=== PATIENT | female | born 1955 | race Caucasian/White ===

== ENCOUNTER 2024-06-22 12:18 | Observation (INO) ==
[2024-06-22] MEDS: methylPREDNISolone SOD SUCC 125 MG/2 ML VIAL IV ONE (12:54)
[2024-06-22] MEDS: IPRATROPIUM/ALBUTEROL 3 ML AMPUL.NEB NEB ONE (12:56)
[2024-06-22 13:20] LABS: Basophils # (Auto) 0.01 K/mcL (0.00-0.30); Basophils % (Auto) 0.1 % (0.0-2.0); Eosinophils # (Auto) 0 K/mcL (0.00-0.70); Eosinophils % (Auto) 0 % (0.0-7.0); Hematocrit 39.6 % (34.1-44.9); Lymphocytes # (Auto) 1.16 K/mcL (1.50-4.80); Lymphocytes % (Auto) 8.7 % (15.5-49.0); Mean Corpuscular HGB Conc 32.8 g/dL (31.0-36.0); Mean Platelet Volume 10.9 fL (8.8-12.5); Monocytes # (Auto) 0.42 K/mcL (0.10-0.90); Monocytes % (Auto) 3.1 % (1.0-12.0); Neutrophils % (Auto) 87.1 % (38.0-78.0); Platelet Count 476 K/mcL (140-440); Red Cell Distribution Width 14.9 % (11.5-14.5); WBC 13.4 K/mcL (4.5-11.0)
[2024-06-22 13:34] LABS: ALT/SGPT 23 U/L (<40); AST/SGOT 25 U/L (<32); Albumin 4.6 gm/dL (3.2-5.2); Albumin/Globulin Ratio 1.2 (1.0-2.3); Alkaline Phosphatase 82 U/L (39-117); Bilirubin,Total 0.5 mg/dL (0.1-1.0); Blood Urea Nitrogen 24 mg/dL (8-23); Calcium 10.1 mg/dL (8.6-10.4); Carbon Dioxide 23 mmol/L (22-30); Chloride 96 mmol/L (96-108); Globulin 3.7 gm/dL (2.2-3.7); Glomerular Filtration Rate 66; Glucose 133 mg/dL (70-105); Potassium 3.9 mmol/L (3.3-5.1); Sodium 137 mmol/L (133-145)
[2024-06-22 13:38] LABS: ABG Methemoglobin 0.1 % (0.4-1.5); Total Hemoglobin 13.7 gm/Dl (12.0-15.0); VBG Base Excess 3 (-2-3); VBG HCO3 24.1 mmol/L (24.0-28.0); VBG Oxygen Saturation 87.4 % (40.0-70.0); VBG PCO2 27.5 mmHg (41.0-51.0); VBG PH 7.56 U (7.32-7.42); VBG Total CO2 24.9 mmol/L (25.0-29.0)
[2024-06-22] MEDS: ALBUTEROL SULFATE 2.5 MG/3 ML NEBULIZER NEB ONE ×2 (13:52→16:00)
[2024-06-22] MEDS: DOXYCYCLINE HYCLATE 100 MG TABLET.ORL PO ONE (14:39)
[2024-06-22] MEDS: FUROSEMIDE 20 MG/2 ML VIAL IV ONE (14:39)
[2024-06-22] MEDS: cefTRIAXone 1 GM VIAL IV ONE (14:39)
[2024-06-22] MEDS ORDERED: ONDANSETRON 4 MG/2 ML VIAL IV PRN (17:25)
[2024-06-22 18:23] LABS: INR 2.2 (0.9-1.1); Prothrombin Time 25.4 sec (11.9-14.5)
[2024-06-22] MEDS: IPRATROPIUM/ALBUTEROL 3 ML AMPUL.NEB NEB SCH (18:47)
[2024-06-22] MEDS: AMOXICILLIN/POTASSIUM CLAV 500 MG TABLET PO SCH (20:13)
[2024-06-22] MEDS ORDERED: ALBUTEROL INHALER INH PRN (20:57)
[2024-06-22] MEDS: BENZONATATE 100 MG CAPSULE PO PRN (21:04)
[2024-06-22] MEDS: WARFARIN 5 MG TABLET PO ONE (21:24)
[2024-06-22] MEDS: DILTIAZEM 120 MG CAP.XL.24H PO SCH (21:24)
[2024-06-22] MEDS: SENNOSIDES 1 TABLET PO SCH (21:24)
[2024-06-22] MEDS: DOCUSATE SODIUM 100 MG CAPSULE PO SCH (21:24)
[2024-06-22] MEDS: ACETAMINOPHEN 325 MG TABLET PO PRN (21:24)
[2024-06-22] MEDS: GABAPENTIN 300 MG CAPSULE PO SCH (21:24)
[2024-06-22] MEDS: traMADol 50 MG TABLET PO PRN (21:25)
[2024-06-22] MEDS: ATORVASTATIN 40 MG TABLET PO SCH (21:25)
[2024-06-22] MEDS: MONTELUKAST 10 MG TABLET PO SCH (21:25)
[2024-06-22] MEDS: 0.9 % SODIUM CHLORIDE 10 ML SYRINGE IV SCH (21:26)
[2024-06-23] MEDS: guaiFENesin/DEXTROMETHORPHAN 5ML UD CUP PO PRN (05:33)
[2024-06-23] MEDS: IPRATROPIUM/ALBUTEROL 3 ML AMPUL.NEB NEB PRN (05:57)
[2024-06-23 06:51] LABS: INR 2.3 (0.9-1.1); Prothrombin Time 25.8 sec (11.9-14.5)
[2024-06-23 06:52] LABS: Basophils # (Auto) 0.02 K/mcL (0.00-0.30); Basophils % (Auto) 0.1 % (0.0-2.0); Eosinophils # (Auto) 0 K/mcL (0.00-0.70); Eosinophils % (Auto) 0 % (0.0-7.0); Hematocrit 38.4 % (34.1-44.9); Hemoglobin 12.6 g/dL (11.2-15.7); Lymphocytes % (Auto) 8.3 % (15.5-49.0); Mean Cell Volume 88.3 fL (80.0-100.0); Mean Corpuscular HGB Conc 32.8 g/dL (31.0-36.0); Mean Platelet Volume 10.9 fL (8.8-12.5); Monocytes # (Auto) 0.75 K/mcL (0.10-0.90); Monocytes % (Auto) 4.1 % (1.0-12.0); Neutrophils % (Auto) 86.3 % (38.0-78.0); Platelet Count 514 K/mcL (140-440); RBC 4.35 M/mcL (3.59-5.38); Red Cell Distribution Width 15.1 % (11.5-14.5); WBC 18.2 K/mcL (4.5-11.0)
[2024-06-23 06:58] LABS: Phosphorous 4.8 mg/dL (2.5-4.5)
[2024-06-23 07:02] LABS: ALT/SGPT 35 U/L (<40); AST/SGOT 28 U/L (<32); Albumin 4.3 gm/dL (3.2-5.2); Albumin/Globulin Ratio 1.2 (1.0-2.3); Alkaline Phosphatase 76 U/L (39-117); Bilirubin,Total 0.3 mg/dL (0.1-1.0); Blood Urea Nitrogen 30 mg/dL (8-23); Calcium 9.7 mg/dL (8.6-10.4); Carbon Dioxide 23 mmol/L (22-30); Chloride 96 mmol/L (96-108); Globulin 3.5 gm/dL (2.2-3.7); Glomerular Filtration Rate 58; Glucose 157 mg/dL (70-105); Potassium 3.7 mmol/L (3.3-5.1); Sodium 136 mmol/L (133-145)
[2024-06-23] MEDS ORDERED: FUROSEMIDE 20 MG/2 ML VIAL IV ONE (07:16)
[2024-06-23] MEDS: FUROSEMIDE 20 MG/2 ML VIAL IV SCH (07:16)
[2024-06-23] MEDS: OMEPRAZOLE 20 MG CAPSULE PO SCH (09:25)
[2024-06-23] MEDS: predniSONE 20 MG TABLET PO SCH (09:25)
[2024-06-23] MEDS: SPIRONOLACTONE 25 MG TABLET PO SCH (09:25)
[2024-06-23] MEDS: DOFETILIDE 125 MCG PO SCH ×2 (09:26→17:37)
[2024-06-23] MEDS: LORazepam 0.5 MG TABLET PO PRN (11:17)
[2024-06-23] MEDS ORDERED: FUROSEMIDE 20 MG TABLET PO SCH (13:15)
[2024-06-23] MEDS: NITROGLYCERIN 0.4 MG TAB.SUBL SL PRN (14:02)
[2024-06-23] MEDS: WARFARIN 5 MG TABLET PO SCH (14:46)
[2024-06-23] MEDS: FUROSEMIDE 20 MG TABLET PO SCH (17:36)
[2024-06-23] MEDS ORDERED: METOPROLOL TARTRATE 5 MG/5 ML VIAL IV PRN (20:03)
[2024-06-23] MEDS: traZODone HCL 50 MG TABLET PO PRN (20:15)
[2024-06-24] MEDS: FUROSEMIDE 20 MG TABLET PO SCH (05:32)
[2024-06-24 06:32] LABS: Basophils # (Auto) 0.01 K/mcL (0.00-0.30); Basophils % (Auto) 0.1 % (0.0-2.0); Eosinophils # (Auto) 0 K/mcL (0.00-0.70); Eosinophils % (Auto) 0 % (0.0-7.0); Hematocrit 37.7 % (34.1-44.9); Hemoglobin 12.5 g/dL (11.2-15.7); Lymphocytes # (Auto) 1.51 K/mcL (1.50-4.80); Lymphocytes % (Auto) 10.3 % (15.5-49.0); Mean Cell Volume 88.9 fL (80.0-100.0); Mean Corpuscular HGB Conc 33.2 g/dL (31.0-36.0); Mean Platelet Volume 10.8 fL (8.8-12.5); Monocytes # (Auto) 1.19 K/mcL (0.10-0.90); Monocytes % (Auto) 8.1 % (1.0-12.0); Neutrophils % (Auto) 80.5 % (38.0-78.0); Platelet Count 483 K/mcL (140-440); RBC 4.24 M/mcL (3.59-5.38); WBC 14.7 K/mcL (4.5-11.0)
[2024-06-24 06:48] LABS: INR 3.3 (0.9-1.1); Prothrombin Time 34.4 sec (11.9-14.5)
[2024-06-24 06:55] LABS: ALT/SGPT 41 U/L (<40); AST/SGOT 27 U/L (<32); Albumin 4.1 gm/dL (3.2-5.2); Albumin/Globulin Ratio 1.3 (1.0-2.3); Alkaline Phosphatase 71 U/L (39-117); Bilirubin,Total 0.4 mg/dL (0.1-1.0); Blood Urea Nitrogen 33 mg/dL (8-23); Calcium 9.3 mg/dL (8.6-10.4); Carbon Dioxide 25 mmol/L (22-30); Chloride 98 mmol/L (96-108); Globulin 3.2 gm/dL (2.2-3.7); Glomerular Filtration Rate 58; Glucose 134 mg/dL (70-105); Potassium 3.5 mmol/L (3.3-5.1); Sodium 136 mmol/L (133-145)
[2024-06-24 06:56] LABS: Phosphorous 5.2 mg/dL (2.5-4.5)
[2024-06-24] MEDS: IPRATROPIUM/ALBUTEROL 3 ML AMPUL.NEB NEB PRN (08:53)
== END 2024-06-24 12:54 | disposition home or self-care (01) ==
LOC: ED 12:18 → ICU 12:18 → MEDSUR 22:57
PROVIDERS: ADMIT Internal Medicine; ATTEND Internal Medicine

== ENCOUNTER 2025-09-06 12:13 | Inpatient (IN) ==
[2025-09-06] MEDS: FUROSEMIDE 40 MG/4 ML VIAL IV ONE (12:45)
[2025-09-06 13:13] LABS: Basophils # (Auto) 0.01 K/mcL (0.00-0.30); Basophils % (Auto) 0.1 % (0.0-2.0); Eosinophils # (Auto) 0 K/mcL (0.00-0.70); Eosinophils % (Auto) 0 % (0.0-7.0); Hematocrit 39.5 % (34.1-44.9); Hemoglobin 12.6 g/dL (11.2-15.7); Lymphocytes # (Auto) 1.02 K/mcL (1.50-4.80); Lymphocytes % (Auto) 9.2 % (15.5-49.0); Mean Corpuscular HGB Conc 31.9 g/dL (31.0-36.0); Monocytes # (Auto) 0.35 K/mcL (0.10-0.90); Monocytes % (Auto) 3.2 % (1.0-12.0); Neutrophils % (Auto) 87.1 % (38.0-78.0); Platelet Count 244 K/mcL (140-440); RBC 4.36 M/mcL (3.59-5.38); WBC 11.1 K/mcL (4.5-11.0)
[2025-09-06] MEDS: IPRATROPIUM/ALBUTEROL 3 ML AMPUL.NEB NEB ONE (13:24)
[2025-09-06 13:51] LABS: ALT/SGPT 21 U/L (<40); AST/SGOT 33 U/L (<32); Albumin 4.5 gm/dL (3.2-5.2); Albumin/Globulin Ratio 1.5 (1.0-2.3); Alkaline Phosphatase 108 U/L (39-117); Anion Gap 16.0 (8.0-16.0); Bilirubin,Total 0.6 mg/dL (0.1-1.0); Blood Urea Nitrogen 24 mg/dL (8-23); Calcium 9.5 mg/dL (8.6-10.4); Carbon Dioxide 23 mmol/L (22-30); Chloride 101 mmol/L (96-108); Globulin 3.1 gm/dL (2.2-3.7); Glucose 117 mg/dL (70-105); Potassium 4.2 mmol/L (3.3-5.1); Sodium 140 mmol/L (133-145)
[2025-09-06 16:37] LABS: Bacteria,Urine 0 /hpf (0); Bilirubin,Urine NEGATIVE (Negative); Color,Urine LT. YELLOW; Glucose,Urine (UA) NEGATIVE (Negative); Ketones,Urine NEGATIVE (Negative); Leukocyte Esterase,Urine NEGATIVE /uL (Negative); PH,Urine 6.5 (5.0-9.0); Protein,Urine NEGATIVE (Negative); Specific Gravity,Urine 1.010 (1.000-1.035); Urobilinogen,Urine 0.2 mg/dL
[2025-09-06] MEDS ORDERED: METOPROLOL TARTRATE 5 MG/5 ML VIAL IV PRN (17:32)
[2025-09-06] MEDS ORDERED: MAGNESIUM SULFATE 2 GM/50 ML BAG IV PRN (17:32)
[2025-09-06] MEDS ORDERED: ACETAMINOPHEN 325 MG TABLET PO PRN (17:32)
[2025-09-06] MEDS ORDERED: ONDANSETRON 4 MG/2 ML VIAL IV PRN (17:32)
[2025-09-06] MEDS ORDERED: SENNOSIDES 1 TABLET PO PRN (17:32)
[2025-09-06] MEDS ORDERED: METOCLOPRAMIDE 10 MG/2 ML VIAL IV PRN (17:32)
[2025-09-06] MEDS ORDERED: POTASSIUM CHLORIDE 40 MEQ in DEXTROSE 5% IN WATER 500 ML IV PRN (17:32)
[2025-09-06] MEDS ORDERED: POTASSIUM CHLORIDE 20 MEQ TABLET PO PRN (17:32)
[2025-09-06] MEDS: IPRATROPIUM/ALBUTEROL 3 ML AMPUL.NEB NEB PRN (18:08)
[2025-09-06] MEDS: ACETAMINOPHEN 500 MG TABLET PO PRN (19:42)
[2025-09-06] MEDS: FUROSEMIDE 40 MG/4 ML VIAL IV SCH (19:42)
[2025-09-06] MEDS: DILTIAZEM 120 MG CAP.XL.24H PO SCH (20:58)
[2025-09-06] MEDS: ATORVASTATIN 40 MG TABLET PO SCH (20:58)
[2025-09-06] MEDS: GABAPENTIN 300 MG CAPSULE PO SCH (20:58)
[2025-09-06] MEDS: DOCUSATE SODIUM 100 MG CAPSULE PO SCH (20:59)
[2025-09-06] MEDS: ENOXAPARIN 40 MG/0.4 ML SYRINGE SQ SCH (20:59)
[2025-09-06] MEDS: Budesonide-Glycopyr-Formoterol [Breztri Aerosphere] 160MCG-9MCG-4.8MCG/ACT Inhaler INH SCH (20:59)
[2025-09-07 06:32] LABS: Basophils # (Auto) 0.02 K/mcL (0.00-0.30); Basophils % (Auto) 0.2 % (0.0-2.0); Eosinophils # (Auto) 0.01 K/mcL (0.00-0.70); Eosinophils % (Auto) 0.1 % (0.0-7.0); Hematocrit 36.1 % (34.1-44.9); Hemoglobin 11.5 g/dL (11.2-15.7); Lymphocytes # (Auto) 2.55 K/mcL (1.50-4.80); Lymphocytes % (Auto) 26.8 % (15.5-49.0); Mean Corpuscular HGB Conc 31.9 g/dL (31.0-36.0); Monocytes # (Auto) 0.83 K/mcL (0.10-0.90); Monocytes % (Auto) 8.7 % (1.0-12.0); Neutrophils % (Auto) 64.0 % (38.0-78.0); Platelet Count 226 K/mcL (140-440); RBC 3.94 M/mcL (3.59-5.38); WBC 9.5 K/mcL (4.5-11.0)
[2025-09-07 06:49] LABS: ALT/SGPT 22 U/L (<40); AST/SGOT 23 U/L (<32); Albumin 4.0 gm/dL (3.2-5.2); Albumin/Globulin Ratio 1.5 (1.0-2.3); Alkaline Phosphatase 94 U/L (39-117); Anion Gap 11.0 (8.0-16.0); Bilirubin,Direct 0.3 mg/dL (<0.3); Bilirubin,Total 0.6 mg/dL (0.1-1.0); Blood Urea Nitrogen 23 mg/dL (8-23); Calcium 9.0 mg/dL (8.6-10.4); Carbon Dioxide 29 mmol/L (22-30); Chloride 100 mmol/L (96-108); Globulin 2.6 gm/dL (2.2-3.7); Glucose 112 mg/dL (70-105); Phosphorous 4.2 mg/dL (2.5-4.5); Potassium 3.4 mmol/L (3.3-5.1); Sodium 140 mmol/L (133-145); Triglycerides 54 mg/dL (<150); Uric Acid 8.1 mg/dL (2.5-8.0)
[2025-09-07] MEDS: OMEPRAZOLE 20 MG CAPSULE PO SCH (07:13)
[2025-09-07] MEDS: SPIRONOLACTONE 25 MG TABLET PO SCH (08:23)
[2025-09-07] MEDS: MONTELUKAST 10 MG TABLET PO SCH (08:24)
[2025-09-07] MEDS: POTASSIUM CHLORIDE 20 MEQ TABLET PO ONE (12:54)
[2025-09-07] MEDS: APIXABAN 5 MG TABLET PO SCH (21:01)
[2025-09-08 06:34] LABS: ALT/SGPT 24 U/L (<40); AST/SGOT 22 U/L (<32); Albumin 4.0 gm/dL (3.2-5.2); Albumin/Globulin Ratio 1.5 (1.0-2.3); Alkaline Phosphatase 100 U/L (39-117); Anion Gap 13.0 (8.0-16.0); Bilirubin,Direct 0.3 mg/dL (<0.3); Bilirubin,Total 0.6 mg/dL (0.1-1.0); Blood Urea Nitrogen 29 mg/dL (8-23); Calcium 8.9 mg/dL (8.6-10.4); Carbon Dioxide 26 mmol/L (22-30); Chloride 99 mmol/L (96-108); Globulin 2.7 gm/dL (2.2-3.7); Glucose 93 mg/dL (70-105); Phosphorous 4.9 mg/dL (2.5-4.5); Potassium 3.7 mmol/L (3.3-5.1); Sodium 138 mmol/L (133-145); Triglycerides 70 mg/dL (<150); Uric Acid 9.1 mg/dL (2.5-8.0)
[2025-09-08] MEDS: DIAZEPAM 10 MG/2 ML SYRINGE IV ONE (09:35)
[2025-09-08] MEDS: METOLAZONE 2.5 MG TABLET PO ONE (09:36)
[2025-09-09 06:36] LABS: ALT/SGPT 21 U/L (<40); AST/SGOT 17 U/L (<32); Albumin 4.3 gm/dL (3.2-5.2); Albumin/Globulin Ratio 1.5 (1.0-2.3); Alkaline Phosphatase 109 U/L (39-117); Anion Gap 15.0 (8.0-16.0); Bilirubin,Direct 0.3 mg/dL (<0.3); Bilirubin,Total 0.6 mg/dL (0.1-1.0); Blood Urea Nitrogen 39 mg/dL (8-23); Calcium 9.3 mg/dL (8.6-10.4); Carbon Dioxide 26 mmol/L (22-30); Chloride 96 mmol/L (96-108); Globulin 2.9 gm/dL (2.2-3.7); Glucose 182 mg/dL (70-105); Phosphorous 4.8 mg/dL (2.5-4.5); Potassium 3.2 mmol/L (3.3-5.1); Sodium 137 mmol/L (133-145); Triglycerides 35 mg/dL (<150); Uric Acid 10.3 mg/dL (2.5-8.0)
[2025-09-09] MEDS: POTASSIUM CHLORIDE 20 MEQ TABLET PO PRN (06:54)
[2025-09-09] MEDS: METOLAZONE 2.5 MG TABLET PO ONE (09:53)
[2025-09-09] MEDS: FUROSEMIDE 40 MG/4 ML VIAL IV ONE (10:12)
[2025-09-10] MEDS: BUTALB/ACETAMINOPHEN/CAFFEINE 1 TABLET PO PRN (08:21)
[2025-09-10] MEDS: DIAZEPAM 10 MG/2 ML SYRINGE IV PRN ×2 (08:41→11:07)
[2025-09-10 09:25] LABS: ALT/SGPT 22 U/L (<40); AST/SGOT 20 U/L (<32); Albumin 4.3 gm/dL (3.2-5.2); Albumin/Globulin Ratio 1.5 (1.0-2.3); Alkaline Phosphatase 106 U/L (39-117); Anion Gap 14.0 (8.0-16.0); Bilirubin,Direct 0.3 mg/dL (<0.3); Bilirubin,Total 0.6 mg/dL (0.1-1.0); Blood Urea Nitrogen 52 mg/dL (8-23); Calcium 9.6 mg/dL (8.6-10.4); Carbon Dioxide 24 mmol/L (22-30); Chloride 98 mmol/L (96-108); Globulin 2.8 gm/dL (2.2-3.7); Glucose 169 mg/dL (70-105); Phosphorous 3.5 mg/dL (2.5-4.5); Potassium 3.4 mmol/L (3.3-5.1); Sodium 136 mmol/L (133-145); Triglycerides 53 mg/dL (<150); Uric Acid 10.2 mg/dL (2.5-8.0)
[2025-09-11] MEDS: POLYETHYLENE GLYCOL 3350 17 GM PACKET PO PRN (05:52)
[2025-09-11 06:36] LABS: ALT/SGPT 26 U/L (<40); AST/SGOT 20 U/L (<32); Albumin 4.4 gm/dL (3.2-5.2); Albumin/Globulin Ratio 1.6 (1.0-2.3); Alkaline Phosphatase 110 U/L (39-117); Anion Gap 13.0 (8.0-16.0); Bilirubin,Direct 0.3 mg/dL (<0.3); Bilirubin,Total 0.5 mg/dL (0.1-1.0); Blood Urea Nitrogen 43 mg/dL (8-23); Calcium 9.5 mg/dL (8.6-10.4); Carbon Dioxide 27 mmol/L (22-30); Chloride 98 mmol/L (96-108); Globulin 2.8 gm/dL (2.2-3.7); Glucose 112 mg/dL (70-105); Phosphorous 3.9 mg/dL (2.5-4.5); Potassium 3.7 mmol/L (3.3-5.1); Sodium 138 mmol/L (133-145); Triglycerides 56 mg/dL (<150); Uric Acid 9.6 mg/dL (2.5-8.0)
[2025-09-11] MEDS: FUROSEMIDE 20 MG TABLET PO SCH (09:48)
[2025-09-11] MEDS ORDERED: IPRATROPIUM/ALBUTEROL 3 ML AMPUL.NEB NEB PRN ×2 (14:24→14:25)
[2025-09-11] MEDS ORDERED: ALBUTEROL SULFATE 60 PUFF INHALER INH PRN (14:27)
[2025-09-11] MEDS: MECLIZINE 25 MG TABLET PO PRN (23:41)
[2025-09-12 06:12] LABS: Basophils # (Auto) 0.02 K/mcL (0.00-0.30); Basophils % (Auto) 0.1 % (0.0-2.0); Eosinophils # (Auto) 0 K/mcL (0.00-0.70); Eosinophils % (Auto) 0 % (0.0-7.0); Hematocrit 35.5 % (34.1-44.9); Hemoglobin 11.7 g/dL (11.2-15.7); Lymphocytes # (Auto) 2.23 K/mcL (1.50-4.80); Lymphocytes % (Auto) 15.8 % (15.5-49.0); Mean Corpuscular HGB Conc 33.0 g/dL (31.0-36.0); Monocytes # (Auto) 1.55 K/mcL (0.10-0.90); Monocytes % (Auto) 11.0 % (1.0-12.0); Neutrophils % (Auto) 72.3 % (38.0-78.0); Platelet Count 222 K/mcL (140-440); RBC 4.02 M/mcL (3.59-5.38); WBC 14.1 K/mcL (4.5-11.0)
[2025-09-12 06:18] LABS: Anion Gap 11.0 (8.0-16.0); Blood Urea Nitrogen 39 mg/dL (8-23); Calcium 8.8 mg/dL (8.6-10.4); Carbon Dioxide 27 mmol/L (22-30); Chloride 97 mmol/L (96-108); Glucose 139 mg/dL (70-105); Potassium 3.5 mmol/L (3.3-5.1); Sodium 135 mmol/L (133-145)
[2025-09-12] MEDS: LISINOPRIL 5 MG TABLET PO SCH (09:17)
[2025-09-12] MEDS: METOPROLOL SUCCINATE 25 MG TAB.XL.24H PO SCH (09:19)
[2025-09-12] MEDS: MULTIVIT,THER IRON,CA,FA & MIN 1 TABLET PO SCH (09:20)
[2025-09-12 11:22] VITALS: TEMP 98.4
[2025-09-12 14:07] VITALS: O2SAT 94
[2025-09-12] MEDS: FLU VACC TS2025-26(65YR UP)/PF 180 MCG/0.5 ML SYRINGE IM ONE (14:47)
[2025-09-12] MEDS: PNEUMOCOCCAL 23-VAL P-SAC VAC 0.5 ML SYRINGE IM ONE (14:48)
== END 2025-09-12 14:50 | disposition home health service (06) | DRG 291 ==
LOC: ED 12:13 → ICU 17:23 → MEDSUR 09-09 10:25
PROVIDERS: ADMIT Internal Medicine; ATTEND Internal Medicine